=== PATIENT | male | born 1950 | race Caucasian/White ===

== ENCOUNTER 2017-03-20 13:52 | Outpatient (CLI) | payer OTHER ==
--- NOTE | 2017-03-20 16:34 | ULT ---
VENOUS DOPPLER ULTRASOUND OF THE RIGHT LOWER EXTREMITY: Date: 03/20/17 HISTORY: 66-year-old male with right knee swelling/edema. Patient has torn right meniscus since January. Ri ght lower extremity pain. TECHNIQUE: Vee scale ultrasound with color flow and spectral Doppler imaging of the deep venous systems of the right lower extremity performed. FINDINGS: There is good flow, compression, and augmentation noted in the right common femoral, femoral, deep f emoral, posterior tibial, and greater saphenous veins. IMPRESSION: No evidence of deep venous thrombosis in the right lower extremity. POS: [facility]
== END 2017-03-20 13:53 | disposition home or self-care (01) ==
LOC: ULT 13:52
PROVIDERS: ATTEND Family Medicine
DX: M79.89 Other specified soft tissue disorders (principal)